=== PATIENT | male | born 1980 | race Caucasian/White ===

== ENCOUNTER 2024-12-21 03:46 | Emergency (ER) | payer MEDICAID ==
[2024-12-21] MEDS ORDERED: Sodium Chloride 0.9% 10 ML Syringe FLUSH PRN (03:58)
[2024-12-21] MEDS: Sodium Chloride 0.9% 1,000 ML IV SCH (04:07)
[2024-12-21 04:17] LABS: BASOPHILS PERCENT AUTO 0.5 % (0.0-1.0); EOSINOPHILS PERCENT AUTO 0.2 % (0.0-6.0); HEMOGLOBIN 13.6 gm/dl (14.0-18.0); IMMATURE GRAN ABSOLUTE AUTO 0.02 K/mm3 (0.00-0.05); IMMATURE GRAN PERCENT AUTO 0.3 % (0.0-0.4); LYMPHOCYTES ABSOLUTE AUTO 1.5 K/mm3 (1.0-4.8); LYMPHOCYTES PERCENT AUTO 24.7 % (24.0-44.0); MEAN CORPUSCULAR HEMOGLOBIN 30.4 pg (28.0-32.0); MEAN CORPUSCULAR VOLUME 89.3 fl (83.0-99.0); MEAN PLATELET VOLUME 9.4 fl (9.4-12.4); MONOCYTES ABSOLUTE AUTO 0.6 K/mm3 (0.0-0.8); MONOCYTES PERCENT AUTO 10.1 % (0.0-8.0); NEUTROPHILS ABSOLUTE AUTO 3.8 K/mm3 (1.8-7.7); NEUTROPHILS PERCENT AUTO 64.2 % (41.0-71.0); PLATELET COUNT,PLT 257 K/mm3 (150-400); RED BLOOD CELL COUNT 4.48 M/mm3 (4.52-5.90); WHITE BLOOD CELL COUNT,WBC 5.92 K/mm3 (3.9-11.3)
[2024-12-21 04:43] LABS: A/G RATIO 0.9 (1-2); ALANINE AMINOTRANSFERASE,ALT 22 U/L (16-63); ALBUMIN 3.5 g/dl (3.4-5.0); ALKALINE PHOSPHATASE 72 U/L (46-116); ANION GAP 13.5 (5-15); ASPARTATE AMNIOTRANSFERASE,AST 24 U/L (15-37); BILIRUBIN TOTAL 0.8 mg/dL (0.2-1.0); BLOOD UREA NITROGEN,BUN 15 mg/dL (7-18); BUN/CREATININE RATIO 13.6 (14-18); CALCIUM 8.7 mg/dL (8.5-10.1); CARBON DIOXIDE,CO2 27 mEq/L (21-32); CHLORIDE,CL 105 mEq/L (98-107); CREATININE 1.1 mg/dL (0.7-1.3); EST CRCL DRUG DOSING (CG) 93.17 mL/min; ESTIMATED GFR 86 mL/min (>60); GLUCOSE RANDOM 96 mg/dL (70-99); MAGNESIUM 2.2 mg/dL (1.8-2.4); POTASSIUM,K 3.5 mEq/L (3.5-5.1); PROTEIN TOTAL,TP 7.4 g/dl (6.4-8.2); SODIUM,NA 142 mEq/L (136-145)
[2024-12-21 04:44] LABS: TROPONIN I HIGH SENSITIVITY < 4 pg/mL (<=76)
[2024-12-21 06:43] VITALS: BP 107/67; PULSE 93
== END 2024-12-21 06:42 | disposition home or self-care (01) ==
LOC: JD.ED 03:46
DX: R07.89 Other chest pain (principal)
CPT/HCPCS: 36415; 71045; 80053; 80307; 82947; 83735; 84484; 85025; 93005; 96360; 99285; J7030; 93010; 99283

== ENCOUNTER 2024-12-24 11:22 | Emergency (ER) | payer MEDICAID ==
[2024-12-24 14:05] VITALS: BP 118/85; PULSE 89
== END 2024-12-24 12:56 | disposition home or self-care (01) ==
LOC: JD.ED 11:22
DX: K64.8 Other hemorrhoids (principal); F17.210 Nicotine dependence, cigarettes, uncomplicated; Z86.16 Personal history of COVID-19
CPT/HCPCS: 99283

== ENCOUNTER 2024-12-31 13:31 | Inpatient (IN) | payer MEDICAID ==
[2024-12-31] MEDS: Sodium Chloride 0.9% 1,000 ML IV SCH ×5 (13:34→20:21)
[2024-12-31] MEDS: 50% Dextrose in Water 50 ML Syringe IVPUSH ONE (13:50)
[2024-12-31 13:52] LABS: BASOPHILS PERCENT AUTO 0.2 % (0.0-1.0); HEMATOCRIT 48.4 % (42.0-52.0); IMMATURE GRAN ABSOLUTE AUTO 0.08 K/mm3 (0.00-0.05); IMMATURE GRAN PERCENT AUTO 0.5 % (0.0-0.4); LYMPHOCYTES ABSOLUTE AUTO 0.8 K/mm3 (1.0-4.8); LYMPHOCYTES PERCENT AUTO 5.3 % (24.0-44.0); MEAN CORPUSCULAR HEMOGLOBIN 30.5 pg (28.0-32.0); MEAN CORPUSCULAR HGB CONC 34.3 g/dl (32.0-36.0); MEAN PLATELET VOLUME 9.9 fl (9.4-12.4); MONOCYTES ABSOLUTE AUTO 0.8 K/mm3 (0.0-0.8); MONOCYTES PERCENT AUTO 4.9 % (0.0-8.0); NEUTROPHILS ABSOLUTE AUTO 13.6 K/mm3 (1.8-7.7); NEUTROPHILS PERCENT AUTO 89.1 % (41.0-71.0); PLATELET COUNT,PLT 301 K/mm3 (150-400); RED BLOOD CELL COUNT 5.44 M/mm3 (4.52-5.90); WHITE BLOOD CELL COUNT,WBC 15.26 K/mm3 (3.9-11.3)
[2024-12-31] MEDS: Naloxone 0.4 MG/ML SDV IVPUSH ONE (13:53)
[2024-12-31 13:55] LABS: HEMOGLOBIN 16.6 gm/dl (14.0-18.0)
[2024-12-31] MEDS: LORazepam 2 MG/ML SDV IVPUSH ONE ×4 (14:00→14:45)
[2024-12-31] MEDS: Naloxone 2 MG/2 ML Syringe ONE (14:05)
[2024-12-31] MEDS: Dextrose 5% in Water 1,000 ML ONE (14:05)
[2024-12-31] MEDS: 50% Dextrose in Water 50 ML Syringe ONE ×3 (14:05→15:10)
[2024-12-31 14:11] LABS: APPEARANCE,URINE SLT CLOUDY (Clear); BILIRUBIN,URINE NEGATIVE (Negative); COLOR,URINE YELLOW (Yellow); GLUCOSE,URINE 2+ (Negative); KETONES,URINE NEGATIVE (Negative); LEUKOCYTE ESTERASE,URINE NEGATIVE (Negative); NITRITE,URINE NEGATIVE (Negative); OCCULT BLOOD,URINE TRACE-LYSED (Negative); PH,URINE 6.5 (5.0-8.0); PROTEIN,URINE 1+ (Negative); UROBILINOGEN,URINE 0.2 (0.2-1.0)
[2024-12-31] MEDS: LORazepam 2 MG/ML SDV ONE ×3 (14:17→15:04)
[2024-12-31 14:18] LABS: BARBITURATE SCREEN,URINE NEGATIVE (CUTOFF=200); BENZODIAZEPINES SCREEN,URINE NEGATIVE (CUTOFF=150); BUPRENORPHINE SCREEN,URINE NEGATIVE (CUTOFF=10); METHADONE SCREEN, URINE NEGATIVE (CUT0FF=200); METHAMPHETAMINES SCREEN, URINE PRESUMPTIVE POSITIVE (CUTOFF=500); OXYCODONE SCREEN,URINE NEGATIVE (CUT0FF=100); THC SCREEN,URINE 20 NG/ML NEGATIVE (CUTOFF=50)
[2024-12-31] MEDS: Dextrose 10% in Water 1,000 ML IV SCH ×3 (14:18→21:37)
[2024-12-31 14:19] LABS: A/G RATIO 0.8 (1-2); ALANINE AMINOTRANSFERASE,ALT 25 U/L (16-63); ALBUMIN 4.1 g/dl (3.4-5.0); ALKALINE PHOSPHATASE 85 U/L (46-116); ANION GAP 15.5 (5-15); ASPARTATE AMNIOTRANSFERASE,AST 32 U/L (15-37); BILIRUBIN TOTAL 1.1 mg/dL (0.2-1.0); BLOOD UREA NITROGEN,BUN 16 mg/dL (7-18); BUN/CREATININE RATIO 12.3 (14-18); CARBON DIOXIDE,CO2 26 mEq/L (21-32); CHLORIDE,CL 101 mEq/L (98-107); CREATININE 1.3 mg/dL (0.7-1.3); ESTIMATED GFR 70 mL/min (>60); GLUCOSE RANDOM 58 mg/dL (70-99); MAGNESIUM 2.3 mg/dL (1.8-2.4); PHOSPHORUS 2.9 mg/dL (2.6-4.7); POTASSIUM,K 3.5 mEq/L (3.5-5.1); SODIUM,NA 139 mEq/L (136-145); TROPONIN I HIGH SENSITIVITY 6 pg/mL (<=76)
[2024-12-31] MEDS: Sodium Chloride 0.9% 10 ML Syringe FLUSH PRN (14:19)
[2024-12-31 14:22] LABS: BACTERIA,URINE FEW /hpf (FEW); MUCUS,URINE FEW /hpf (FEW); SQUAMOUS EPITHELIAL CELLS,UR 0-5 /hpf (0-5); WBC,URINE 0-5 /hpf (0-5)
[2024-12-31 14:23] LABS: AMPHETAMINES SCREEN, URINE PRESUMPTIVE POSITIVE (CUTOFF=500)
[2024-12-31] MEDS: 50% Dextrose in Water 50 ML Syringe IVPUSH PRN ×3 (14:26→17:43)
[2024-12-31] MEDS: Hydrocortisone Sodium Succinate 100 MG/2 ML SDV IVPUSH ONE (14:31)
[2024-12-31 14:43] LABS: BASE EXCESS ARTERIAL 3.1 (-2-2.0); BICARBONATE,ARTERIAL 27 meq/L (22.0-26.0); O2 SATURATION ARTERIAL 94.6 % (96.0-97.0)
[2024-12-31] MEDS: propofoL 1,000 MG/100 ML 100 ML ONE (15:04)
[2024-12-31] MEDS: Etomidate 2 MG/ML 20 ML SDV IVPUSH ONE (15:07)
[2024-12-31] MEDS: Succinylcholine 200 MG/10 ML MDV IVPUSH ONE (15:08)
[2024-12-31] MEDS: propofoL 1,000 MG/100 ML 100 ML IV SCH (15:10)
[2024-12-31] MEDS ORDERED: Hydrocortisone Sodium Succinate 100 MG/2 ML SDV IVPUSH ONE (15:49)
[2024-12-31] MEDS ORDERED: Glucagon,Human Recombinant 1 MG Vial IVPUSH ONE (16:36)
[2024-12-31 16:41] LABS: BASE EXCESS ARTERIAL 0.7 (-2-2.0); BICARBONATE,ARTERIAL 25.4 meq/L (22.0-26.0); O2 SATURATION ARTERIAL 98.9 % (96.0-97.0)
[2024-12-31] MEDS ORDERED: Ondansetron 4 MG/2 ML SDV IV PRN (16:47)
[2024-12-31] MEDS ORDERED: Morphine 2 MG/ML SYRINGE IVPUSH PRN (16:47)
[2024-12-31] MEDS ORDERED: Melatonin 3 MG Tab PO PRN (16:47)
[2024-12-31] MEDS ORDERED: oxyCODONE 5 MG Tab PO PRN (16:47)
[2024-12-31] MEDS ORDERED: Sennosides/Docusate Sodium 50-8.6 MG Tab PO PRN (16:47)
[2024-12-31] MEDS: Piperacillin/Tazobactam 4.5 GM in Sodium Chloride 0.9% 100 ML IV ONE (17:18)
[2024-12-31] MEDS: Octreotide 100 MCG/ML SDV SUBCUT ONE (17:26)
[2024-12-31 18:59] LABS: BASOPHILS PERCENT AUTO 0.1 % (0.0-1.0); HEMATOCRIT 37.6 % (42.0-52.0); HEMOGLOBIN 12.7 gm/dl (14.0-18.0); IMMATURE GRAN ABSOLUTE AUTO 0.04 K/mm3 (0.00-0.05); IMMATURE GRAN PERCENT AUTO 0.4 % (0.0-0.4); LYMPHOCYTES ABSOLUTE AUTO 0.6 K/mm3 (1.0-4.8); LYMPHOCYTES PERCENT AUTO 5.6 % (24.0-44.0); MEAN CORPUSCULAR HEMOGLOBIN 30.5 pg (28.0-32.0); MEAN CORPUSCULAR HGB CONC 33.8 g/dl (32.0-36.0); MEAN CORPUSCULAR VOLUME 90.4 fl (83.0-99.0); MONOCYTES ABSOLUTE AUTO 0.4 K/mm3 (0.0-0.8); NEUTROPHILS ABSOLUTE AUTO 9.7 K/mm3 (1.8-7.7); NEUTROPHILS PERCENT AUTO 89.9 % (41.0-71.0); PLATELET COUNT,PLT 194 K/mm3 (150-400); RED BLOOD CELL COUNT 4.16 M/mm3 (4.52-5.90); WHITE BLOOD CELL COUNT,WBC 10.73 K/mm3 (3.9-11.3)
[2024-12-31 19:13] LABS: LACTIC ACID 2.6 mmol/L (0.4-2.0)
[2024-12-31 19:16] LABS: INR 1.01; PROTHROMBIN TIME 10.7 SECONDS (9.7-12.0)
[2024-12-31 19:32] LABS: A/G RATIO 0.8 (1-2); ALBUMIN 2.8 g/dl (3.4-5.0); ANION GAP 11.7 (5-15); BILIRUBIN TOTAL 1.3 mg/dL (0.2-1.0); BUN/CREATININE RATIO 10.9 (14-18); C-REACTIVE PROTEIN 1.2 mg/dL (<0.30); CALCIUM 8.1 mg/dL (8.5-10.1); CREATININE 1.1 mg/dL (0.7-1.3); EST CRCL DRUG DOSING (CG) 89.69 mL/min; PHOSPHORUS 3.6 mg/dL (2.6-4.7); POTASSIUM,K 3.7 mEq/L (3.5-5.1); PROTEIN TOTAL,TP 6.4 g/dl (6.4-8.2)
[2024-12-31 19:44] LABS: TSH 0.604 uIU/mL (0.358-3.74)
[2024-12-31 20:00] LABS: FOLIC ACID 14.3 ng/mL (8.6-58.9)
[2024-12-31 20:07] LABS: SALICYLATE 4.7 mg/dL (2.8-20.0)
[2024-12-31] MEDS: Piperacillin/Tazobactam 4.5 GM in Sodium Chloride 0.9% 100 ML IV SCH (20:23)
[2024-12-31] MEDS: Pantoprazole 40 MG Vial IVPUSH SCH (20:23)
[2024-12-31] MEDS: Glucagon,Human Recombinant 1 MG Vial IVPUSH ONE (20:26)
[2024-12-31] MEDS: Potassium Chloride 10 MEQ in Premix Bag 1 BAG IV SCH (21:04)
[2025-01-01 04:28] LABS: BASOPHILS PERCENT AUTO 0.1 % (0.0-1.0); HEMATOCRIT 38.7 % (42.0-52.0); HEMOGLOBIN 12.8 gm/dl (14.0-18.0); IMMATURE GRAN ABSOLUTE AUTO 0.02 K/mm3 (0.00-0.05); IMMATURE GRAN PERCENT AUTO 0.2 % (0.0-0.4); LYMPHOCYTES ABSOLUTE AUTO 2.2 K/mm3 (1.0-4.8); MEAN CORPUSCULAR HGB CONC 33.1 g/dl (32.0-36.0); MEAN CORPUSCULAR VOLUME 90.8 fl (83.0-99.0); MEAN PLATELET VOLUME 10.2 fl (9.4-12.4); MONOCYTES ABSOLUTE AUTO 0.9 K/mm3 (0.0-0.8); MONOCYTES PERCENT AUTO 10.2 % (0.0-8.0); NEUTROPHILS ABSOLUTE AUTO 5.5 K/mm3 (1.8-7.7); NEUTROPHILS PERCENT AUTO 63.5 % (41.0-71.0); PLATELET COUNT,PLT 193 K/mm3 (150-400); RED BLOOD CELL COUNT 4.26 M/mm3 (4.52-5.90); WHITE BLOOD CELL COUNT,WBC 8.63 K/mm3 (3.9-11.3)
[2025-01-01 05:12] LABS: A/G RATIO 0.7 (1-2); ALBUMIN 2.6 g/dl (3.4-5.0); BILIRUBIN TOTAL 1.3 mg/dL (0.2-1.0); C-REACTIVE PROTEIN 2.88 mg/dL (<0.30); CALCIUM 8.5 mg/dL (8.5-10.1); EST CRCL DRUG DOSING (CG) 101.56 mL/min; MAGNESIUM 2.1 mg/dL (1.8-2.4); PROTEIN TOTAL,TP 6.2 g/dl (6.4-8.2)
[2025-01-01 05:20] LABS: ANION GAP 12.2 (5-15); POTASSIUM,K 4.2 mEq/L (3.5-5.1)
[2025-01-01] MEDS: Enoxaparin 40 MG/0.4 ML Syringe SUBCUT SCH (08:04)
[2025-01-01] MEDS: Dextrose 5%-0.45% NaCl 1,000 ML IV SCH (09:13)
[2025-01-01] MEDS: Dextrose 10% in Water 1,000 ML IV SCH (12:08)
[2025-01-01 13:57] LABS: BASE EXCESS ARTERIAL -1.4 (-2-2.0); BICARBONATE,ARTERIAL 22.8 meq/L (22.0-26.0)
[2025-01-01] MEDS: Sodium Chloride 0.9% 1,000 ML IV SCH (17:57)
[2025-01-02] MEDS: LORazepam 2 MG/ML SDV IVPUSH ONE ×2 (01:56→11:15)
[2025-01-02 05:34] LABS: BASOPHILS PERCENT AUTO 0.2 % (0.0-1.0); EOSINOPHILS PERCENT AUTO 0.3 % (0.0-6.0); HEMATOCRIT 38.8 % (42.0-52.0); HEMOGLOBIN 12.8 gm/dl (14.0-18.0); IMMATURE GRAN ABSOLUTE AUTO 0.03 K/mm3 (0.00-0.05); IMMATURE GRAN PERCENT AUTO 0.3 % (0.0-0.4); LYMPHOCYTES ABSOLUTE AUTO 1.7 K/mm3 (1.0-4.8); LYMPHOCYTES PERCENT AUTO 19.8 % (24.0-44.0); MEAN CORPUSCULAR HEMOGLOBIN 30.5 pg (28.0-32.0); MEAN CORPUSCULAR VOLUME 92.6 fl (83.0-99.0); MEAN PLATELET VOLUME 10.3 fl (9.4-12.4); MONOCYTES ABSOLUTE AUTO 0.6 K/mm3 (0.0-0.8); MONOCYTES PERCENT AUTO 6.5 % (0.0-8.0); NEUTROPHILS ABSOLUTE AUTO 6.3 K/mm3 (1.8-7.7); NEUTROPHILS PERCENT AUTO 72.9 % (41.0-71.0); PLATELET COUNT,PLT 186 K/mm3 (150-400); RED BLOOD CELL COUNT 4.19 M/mm3 (4.52-5.90); WHITE BLOOD CELL COUNT,WBC 8.65 K/mm3 (3.9-11.3)
[2025-01-02 05:43] LABS: A/G RATIO 0.6 (1-2); ALBUMIN 2.2 g/dl (3.4-5.0); ANION GAP 11.6 (5-15); BILIRUBIN TOTAL 0.7 mg/dL (0.2-1.0); C-REACTIVE PROTEIN 4.07 mg/dL (<0.30); CALCIUM 7.9 mg/dL (8.5-10.1); EST CRCL DRUG DOSING (CG) 104.22 mL/min; MAGNESIUM 1.9 mg/dL (1.8-2.4); PHOSPHORUS 2.7 mg/dL (2.6-4.7); POTASSIUM,K 3.6 mEq/L (3.5-5.1); PROTEIN TOTAL,TP 5.9 g/dl (6.4-8.2)
[2025-01-02] MEDS: Magnesium Sulfat/D5W 1GM/100ML 1 GM in Premix Bag 1 BAG IV ONE (08:16)
[2025-01-02] MEDS: Potassium Phosphates 30 MMOLE in Sodium Chloride 0.9% 500 ML IV SCH (10:13)
[2025-01-02] MEDS ORDERED: Sodium Chloride 0.9% 1,000 ML IV SCH (12:30)
[2025-01-02] MEDS ORDERED: Morphine 2 MG/ML SYRINGE IVPUSH PRN (12:30)
[2025-01-02] MEDS: Sodium Chloride 0.9% 1,000 ML IV SCH (12:33)
[2025-01-02] MEDS: Dextrose 10% in Water 1,000 ML IV SCH ×3 (12:33→19:36)
[2025-01-03 08:35] LABS: O2 SATURATION ARTERIAL 90.3 % (96.0-97.0)
[2025-01-03 08:36] LABS: BASE EXCESS ARTERIAL 1.8 (-2-2.0); BICARBONATE,ARTERIAL 25.7 meq/L (22.0-26.0)
[2025-01-03] MEDS: LORazepam 2 MG/ML SDV IVPUSH ONE (08:58)
[2025-01-03] MEDS: LORazepam 2 MG/ML SDV ONE (09:34)
[2025-01-03 10:20] LABS: A/G RATIO 0.6 (1-2); ALBUMIN 2.3 g/dl (3.4-5.0); ANION GAP 11.7 (5-15); BILIRUBIN TOTAL 0.9 mg/dL (0.2-1.0); CALCIUM 8.2 mg/dL (8.5-10.1); EST CRCL DRUG DOSING (CG) 104.46 mL/min; POTASSIUM,K 3.7 mEq/L (3.5-5.1); PROTEIN TOTAL,TP 6.4 g/dl (6.4-8.2)
[2025-01-03 10:23] LABS: PHOSPHORUS 2.9 mg/dL (2.6-4.7)
[2025-01-03 10:24] LABS: C-REACTIVE PROTEIN 4.65 mg/dL (<0.30); MAGNESIUM 1.8 mg/dL (1.8-2.4)
[2025-01-03] MEDS: 50% Dextrose in Water 50 ML Syringe IVPUSH PRN (17:57)
[2025-01-03] MEDS ORDERED: Acetaminophen 650 MG Supp RECTAL PRN (22:12)
[2025-01-03] MEDS ORDERED: Dextrose 10% in Water 1,000 ML IV SCH (22:15)
[2025-01-03] MEDS ORDERED: Sodium Chloride 0.9% 1,000 ML IV SCH (22:15)
[2025-01-03] MEDS: Ketorolac 30 MG/ML SDV IVPUSH PRN (22:21)
[2025-01-03] MEDS: Dextrose 5% in Water 1,000 ML IV SCH (22:37)
[2025-01-04] MEDS: Sodium Chloride 0.9% 1,000 ML IV SCH (00:55)
[2025-01-04 05:43] LABS: BASOPHILS PERCENT AUTO 0.4 % (0.0-1.0); EOSINOPHILS PERCENT AUTO 0.4 % (0.0-6.0); HEMATOCRIT 35.9 % (42.0-52.0); IMMATURE GRAN ABSOLUTE AUTO 0.01 K/mm3 (0.00-0.05); IMMATURE GRAN PERCENT AUTO 0.1 % (0.0-0.4); LYMPHOCYTES PERCENT AUTO 28.9 % (24.0-44.0); MEAN CORPUSCULAR HEMOGLOBIN 30.3 pg (28.0-32.0); MEAN CORPUSCULAR HGB CONC 33.4 g/dl (32.0-36.0); MEAN CORPUSCULAR VOLUME 90.7 fl (83.0-99.0); MEAN PLATELET VOLUME 10.7 fl (9.4-12.4); MONOCYTES ABSOLUTE AUTO 0.5 K/mm3 (0.0-0.8); MONOCYTES PERCENT AUTO 7.9 % (0.0-8.0); NEUTROPHILS ABSOLUTE AUTO 4.2 K/mm3 (1.8-7.7); NEUTROPHILS PERCENT AUTO 62.3 % (41.0-71.0); PLATELET COUNT,PLT 187 K/mm3 (150-400); RED BLOOD CELL COUNT 3.96 M/mm3 (4.52-5.90); WHITE BLOOD CELL COUNT,WBC 6.74 K/mm3 (3.9-11.3)
[2025-01-04] MEDS: 50% Dextrose in Water 50 ML Syringe IVPUSH PRN (06:12)
[2025-01-04 06:17] LABS: A/G RATIO 0.5 (1-2); ALBUMIN 2.1 g/dl (3.4-5.0); ANION GAP 10.2 (5-15); BILIRUBIN TOTAL 1.1 mg/dL (0.2-1.0); C-REACTIVE PROTEIN 4.46 mg/dL (<0.30); CALCIUM 7.9 mg/dL (8.5-10.1); EST CRCL DRUG DOSING (CG) 104.71 mL/min; MAGNESIUM 1.6 mg/dL (1.8-2.4); PHOSPHORUS 2.9 mg/dL (2.6-4.7); POTASSIUM,K 3.2 mEq/L (3.5-5.1)
[2025-01-04] MEDS ORDERED: Potassium Chloride 20 MEQ in Dextrose 5% in Water 1,000 ML IV SCH (09:00)
[2025-01-04] MEDS: methylPREDNISolone Sodium Succinate 40 MG/1 ML SDV IVPUSH ONE (09:12)
[2025-01-04] MEDS: Magnesium Sulfate 2 GM/50 mL 2 GM in Premix Bag 1 BAG IV ONE (09:12)
[2025-01-04] MEDS: Furosemide 20 MG/2 ML VIAL IVPUSH ONE (09:12)
[2025-01-04] MEDS: Potassium Chloride 20 MEQ in Dextrose 5% in Water 1,000 ML IV SCH (09:26)
[2025-01-04] MEDS: LORazepam 2 MG/ML SDV IVPUSH ONE (16:04)
[2025-01-04] MEDS ORDERED: Sodium Chloride 0.65% Nasal Spray 45 ML Bottle NAS PRN (16:11)
[2025-01-04] MEDS: Acetaminophen 325 MG Tab PO PRN (22:20)
[2025-01-05 04:34] LABS: HEMATOCRIT 34.7 % (42.0-52.0); HEMOGLOBIN 11.7 gm/dl (14.0-18.0); MEAN CORPUSCULAR HEMOGLOBIN 30.4 pg (28.0-32.0); MEAN CORPUSCULAR HGB CONC 33.7 g/dl (32.0-36.0); MEAN CORPUSCULAR VOLUME 90.1 fl (83.0-99.0); MEAN PLATELET VOLUME 10.2 fl (9.4-12.4); PLATELET COUNT,PLT 215 K/mm3 (150-400); RED BLOOD CELL COUNT 3.85 M/mm3 (4.52-5.90); WHITE BLOOD CELL COUNT,WBC 7.28 K/mm3 (3.9-11.3)
[2025-01-05 04:55] LABS: A/G RATIO 0.5 (1-2); ALBUMIN 2.2 g/dl (3.4-5.0); BILIRUBIN TOTAL 0.5 mg/dL (0.2-1.0); C-REACTIVE PROTEIN 2.44 mg/dL (<0.30); CALCIUM 8.1 mg/dL (8.5-10.1); EST CRCL DRUG DOSING (CG) 104.71 mL/min; PROTEIN TOTAL,TP 6.3 g/dl (6.4-8.2)
[2025-01-05] MEDS: Potassium Chloride 10 MEQ in Premix Bag 1 BAG IV SCH (06:43)
[2025-01-05] MEDS: Potassium Chloride 20 MEQ Tab.ER PO SCH (07:55)
[2025-01-05] MEDS: QUEtiapine 100 MG Tab PO SCH (21:14)
[2025-01-05] MEDS: fluvoxaMINE 50 MG Tab PO SCH (21:14)
[2025-01-05] MEDS: Nicotine 14 MG/24 Hr Patch TRDERM SCH (21:37)
[2025-01-06 04:28] LABS: HEMATOCRIT 35.8 % (42.0-52.0); HEMOGLOBIN 11.9 gm/dl (14.0-18.0); MEAN CORPUSCULAR HEMOGLOBIN 29.6 pg (28.0-32.0); MEAN CORPUSCULAR HGB CONC 33.2 g/dl (32.0-36.0); MEAN CORPUSCULAR VOLUME 89.1 fl (83.0-99.0); MEAN PLATELET VOLUME 10.1 fl (9.4-12.4); PLATELET COUNT,PLT 223 K/mm3 (150-400); RED BLOOD CELL COUNT 4.02 M/mm3 (4.52-5.90); WHITE BLOOD CELL COUNT,WBC 7.36 K/mm3 (3.9-11.3)
[2025-01-06 04:55] LABS: A/G RATIO 0.6 (1-2); ALBUMIN 2.5 g/dl (3.4-5.0); ANION GAP 12.4 (5-15); BILIRUBIN TOTAL 0.3 mg/dL (0.2-1.0); C-REACTIVE PROTEIN 1.13 mg/dL (<0.30); CALCIUM 8.4 mg/dL (8.5-10.1); CREATININE 0.9 mg/dL (0.7-1.3); EST CRCL DRUG DOSING (CG) 116.07 mL/min; MAGNESIUM 1.9 mg/dL (1.8-2.4); POTASSIUM,K 3.4 mEq/L (3.5-5.1); PROTEIN TOTAL,TP 6.7 g/dl (6.4-8.2)
[2025-01-06 13:00] VITALS: BP 119/76; PULSE 79
== END 2025-01-06 13:42 | DRG 917 ==
LOC: JD.ED 13:31 → JD.ICU 14:37
PROVIDERS: ADMIT Family Medicine; ATTEND Internal Medicine
PROC: 0T9B70Z Drainage of Bladder with Drainage Device, Via Natural or Artificial Opening (ICD-10-PCS; principal; 2024-12-31)
PROC: 0BH17EZ Insertion of Endotracheal Airway into Trachea, Via Natural or Artificial Opening (ICD-10-PCS; 2024-12-31)
PROC: 5A1945Z Respiratory Ventilation, 24-96 Consecutive Hours (ICD-10-PCS; 2024-12-31)
PROC: 4A133R1 Monitoring of Arterial Saturation, Peripheral, Percutaneous Approach (ICD-10-PCS; 2024-12-31)
PROC: 02HV33Z Insertion of Infusion Device into Superior Vena Cava, Percutaneous Approach (ICD-10-PCS; 2025-01-01)
PROC: B548ZZA Ultrasonography of Superior Vena Cava, Guidance (ICD-10-PCS; 2025-01-01)
DX: T38.3X2A Poisoning by insulin and oral hypoglycemic [antidiabetic] drugs, intentional self-harm, initial encounter (principal); J69.0 Pneumonitis due to inhalation of food and vomit; J96.01 Acute respiratory failure with hypoxia; T43.622A Poisoning by amphetamines, intentional self-harm, initial encounter; T43.652A Poisoning by methamphetamines intentional self-harm, initial encounter; F41.9 Anxiety disorder, unspecified; F90.9 Attention-deficit hyperactivity disorder, unspecified type; F20.9 Schizophrenia, unspecified; E16.0 Drug-induced hypoglycemia without coma; J06.9 Acute upper respiratory infection, unspecified; J38.3 Other diseases of vocal cords; Z86.16 Personal history of COVID-19
CPT/HCPCS: 36415; 36556; 36600; 51702; 70450; 70450-26; 70551; 70551-26; 71045; 71045-26; 80053; 80143; 80179; 80306; 80307; 81001; 82306; 82550; 82607; 82746; 82803; 82947; 83605; 83735; 84100; 84443; 84484; 85025; 85027; 85379; 85610; 86140; 93005; 93010; 94002; 94003; 96361; 96374; 96375; 97110-GP; 97112-GP; 97116-GP; 97161-GP; 97166-GO; 97530-GP; 97535-GO; 99223; 99232; 99233; 99285; 99285-25; A9270-GY; C1751; J0330; J1650; J1720; J1885; J1938; J2060; J2310; J2354-JB-GY; J2470; J2543; J2704; J2919; J3475; J3480; J3490; J7030; J7040; J7042; J7070

== ENCOUNTER 2025-01-31 21:30 | Emergency (ER) | payer MEDICAID | END 2025-01-31 23:40 | disposition left against medical advice (07) | LOC: JD.ED 21:30 | DX: Z53.21 Procedure and treatment not carried out due to patient leaving prior to being seen by health care provider (principal) ==

== ENCOUNTER → 2025-01-31 | Emergency (ER) | payer MEDICAID ==
[2025-01-31 16:13] VITALS: BP 146/97; PULSE 120
== END ==
LOC: JD.ED 15:49
DX: Z53.21 Procedure and treatment not carried out due to patient leaving prior to being seen by health care provider (principal)

== ENCOUNTER → 2025-01-31 | Emergency (ER) | payer MEDICAID ==
[2025-01-31 18:47] VITALS: BP 130/85; PULSE 80
== END ==
LOC: JD.ED 18:39
DX: Z53.21 Procedure and treatment not carried out due to patient leaving prior to being seen by health care provider (principal)